=== PATIENT | female | born 1950 | race Caucasian/White ===

== ENCOUNTER 2021-02-22 14:00 | Outpatient (CLI) | payer MEDICARE ==
[2021-02-22 17:08] LABS: Anion Gap 18 mmol/L (10-20); BUN (Urea Nitrogen) 25 mg/dL (9.8-20.1); Calc. Creatinine Clearance 0 mL/min (70-130); Carbon Dioxide 24 mmol/L (23-31); Chloride 102 mmol/L (98-107); Glucose 237 mg/dL (83-110); Sodium 139 mmol/L (136-145)
[2021-02-22 17:20] LABS: PTT 25.7 sec (22.0-33.0); Prothrombin Time 10.7 sec (9.5-12.1)
[2021-02-22 17:28] LABS: Hemoglobin 12.8 g/dL (12.0-15.5); Mean Corpuscular HGB CONC 31.2 g/dL (32.0-36.0); Mean Corpuscular Hemoglobin 27.5 pg (27.0-33.0); Platelet Count 241 10x3/uL (150-450); RBC Distribution Width 13.8 % (11.5-14.5); Red Blood Cell (RBC) Count 4.66 10x6/uL (3.90-5.03); White Blood Cell (WBC) Count 8.6 10x3/uL (3.5-10.5)
== END 2021-02-22 14:01 | disposition home or self-care (01) ==
LOC: LABBT 14:00
PROVIDERS: ATTEND Neurological Surgery
DX: Z01.812 Encounter for preprocedural laboratory examination (principal); M48.00 Spinal stenosis, site unspecified; M43.10 Spondylolisthesis, site unspecified
CPT/HCPCS: 80048; 85027; 85610; 85730

== ENCOUNTER 2021-02-27 05:46 | Inpatient (IN) | payer MEDICARE, OTHER ==
[2021-02-27] MEDS ORDERED: EPINEPHrine 1 MG/ML AMP ONE (06:10)
[2021-02-27] MEDS ORDERED: Thrombin 5000 UNITS/5 ML VIAL ONE (06:10)
[2021-02-27] MEDS ORDERED: Bupivacaine PF 0.5% 30 ML VIAL ONE (06:10)
[2021-02-27] MEDS ORDERED: Fentanyl 100 MCG/2 ML VIAL ONE ×2 (06:17→16:10)
[2021-02-27] MEDS ORDERED: Rocuronium Bromide 10 MG/ML (10ML VIAL) ONE (07:04)
[2021-02-27] MEDS ORDERED: Glycopyrrolate 0.2 MG/ML 5 ML SYRINGE ONE (07:04)
[2021-02-27] MEDS ORDERED: Ondansetron PF 4 MG/2 ML Vial ONE (07:04)
[2021-02-27] MEDS ORDERED: Lidocaine 1% PF 5 ML VIAL ONE (07:04)
[2021-02-27] MEDS ORDERED: Dexamethasone 20 MG/5 ML VIAL ONE (07:04)
[2021-02-27] MEDS ORDERED: PROPOFOL 200 MG/20 ML VIAL ONE (07:04)
[2021-02-27] MEDS ORDERED: ePHEDrine Sulfate 50 MG/10 ML VIAL ONE (07:04)
[2021-02-27] MEDS ORDERED: PHENYLEPHRINE-NS 100 MCG/ML 10 ML SYRINGE ONE (07:04)
[2021-02-27] MEDS ORDERED: Metoclopramide HCl 10 MG/2 ML VIAL ONE (07:04)
[2021-02-27] MEDS ORDERED: Phenylephrine 10 MG/ML VIAL ONE (08:26)
[2021-02-27] MEDS ORDERED: Mag-Al 1200 mg/1200 mg/30 ML UDCUP PO PRN (13:44)
[2021-02-27] MEDS ORDERED: Promethazine HCl 25 MG/ML VIAL IM PRN ×2 (13:44→13:49)
[2021-02-27] MEDS ORDERED: Promethazine HCl 12.5 MG SUPP PR PRN (13:44)
[2021-02-27] MEDS ORDERED: diphenhydrAMINE 25 MG CAP PO PRN (13:44)
[2021-02-27] MEDS ORDERED: Promethazine 25 MG TAB PO PRN (13:44)
[2021-02-27] MEDS ORDERED: diphenhydrAMINE 50 MG/ML VIAL IVP PRN (13:44)
[2021-02-27] MEDS ORDERED: Ondansetron PF 4 MG/2 ML Vial IVP PRN (13:44)
[2021-02-27] MEDS ORDERED: tiZANidine HCl 4 MG TAB PO PRN (13:44)
[2021-02-27] MEDS ORDERED: Milk Of Magnesia 30 ML UDCUP PO PRN (13:44)
[2021-02-27] MEDS ORDERED: Ondansetron HCl/PF 4 MG/2 ML Vial IVP PRN (13:49)
[2021-02-27] MEDS ORDERED: Meperidine HCl/PF 25 MG/ML VIAL SLOW IVP PRN (13:49)
[2021-02-27] MEDS ORDERED: Promethazine HCl 25 MG/ML VIAL SLOW IVP PRN (13:49)
[2021-02-27] MEDS ORDERED: Dextrose 5% in Water 1,000 ML IV PRN (18:31)
[2021-02-27] MEDS ORDERED: Dextrose 50% Abboject 50 ML SYRINGE SLOW IVP PRN (18:31)
[2021-02-27] MEDS: Sodium Chloride 0.9% 1,000 ML IV SCH (20:58)
[2021-02-27] MEDS: Scopolamine 1.5 mg/72 hour Patch TD SCH (20:59)
[2021-02-27] MEDS: Rosuvastatin 10 MG TAB PO SCH (21:00)
[2021-02-27] MEDS: hydrALAZINE 25 MG TAB PO SCH (21:00)
[2021-02-27] MEDS: Carvedilol 6.25 MG TAB PO SCH (21:00)
[2021-02-27] MEDS: Pregabalin 50 MG CAP PO SCH (21:09)
[2021-02-27] MEDS: CEFAZOLIN 2 GM in Premix Bag 1 BAG IVPB SCH (21:15)
[2021-02-27] MEDS: traMADol HCl 50 MG TAB PO PRN (21:15)
[2021-02-27] MEDS: Lantus 1000 UNITS/10 ML VIAL SC SCH (21:18)
[2021-02-27] MEDS: Morphine 4 MG/ML VIAL SLOW IVP PRN (22:50)
[2021-02-28] MEDS: Morphine 4 MG/ML VIAL SLOW IVP PRN ×2 (00:07→09:04)
[2021-02-28] MEDS: CEFAZOLIN 2 GM in Premix Bag 1 BAG IVPB SCH ×2 (03:54→12:47)
[2021-02-28] MEDS: traMADol HCl 50 MG TAB PO PRN ×2 (04:03→10:19)
[2021-02-28] MEDS: Sodium Chloride 0.9% 1,000 ML IV SCH ×3 (05:23→16:46)
[2021-02-28] MEDS: HumaLOG 300 UNITS/3 ML VIAL SC PRN ×4 (05:28→21:32)
[2021-02-28 06:27] LABS: Hemoglobin 10.9 g/dL (12.0-16.0); Mean Corpuscular HGB CONC 32.6 g/dL (32.0-36.0); Mean Corpuscular Hemoglobin 28.8 pg (27.0-31.0); Mean Corpuscular Volume 88.5 fL (78.0-98.0); Mean Platelet Volume 6.2 fL (7.4-10.4); Platelet Count 214 thou/uL (130-400); RBC Distribution Width 13.1 % (11.5-14.5); Red Blood Cell (RBC) Count 3.79 mill/uL (4.20-5.40)
[2021-02-28 06:35] LABS: Hemoglobin A1c 7.9 % (4.0-6.0)
[2021-02-28] MEDS: Morphine 2 MG/ML VIAL SLOW IVP PRN (07:42)
[2021-02-28] MEDS: Carvedilol 6.25 MG TAB PO SCH ×2 (08:43→20:51)
[2021-02-28] MEDS: hydrALAZINE 25 MG TAB PO SCH ×2 (08:44→20:55)
[2021-02-28] MEDS: Lantus 1000 UNITS/10 ML VIAL SC SCH ×2 (11:42→20:53)
[2021-02-28] MEDS ORDERED: CEFAZOLIN 2 GM in Premix Bag 1 BAG IVPB SCH (12:00)
[2021-02-28] MEDS: Acetaminophen 325 MG TAB PO PRN (16:44)
[2021-02-28] MEDS: Clopidogrel Bisulfate 75 MG TAB PO SCH (20:52)
[2021-02-28] MEDS: Rosuvastatin 10 MG TAB PO SCH (20:52)
[2021-02-28] MEDS: Pregabalin 50 MG CAP PO SCH (20:52)
[2021-03-01] MEDS: Sodium Chloride 0.9% 1,000 ML IV SCH ×2 (05:00→14:20)
[2021-03-01] MEDS: hydrALAZINE 25 MG TAB PO SCH ×2 (08:40→20:27)
[2021-03-01] MEDS: Aspirin 81 mg Enteric Coated Tablet PO SCH (08:40)
[2021-03-01] MEDS: Lantus 1000 UNITS/10 ML VIAL SC SCH ×2 (08:41→20:26)
[2021-03-01] MEDS: Carvedilol 6.25 MG TAB PO SCH ×2 (08:41→20:28)
[2021-03-01 11:17] LABS: Bacteria/HPF None Seen HPF (None Seen); Bilirubin Negative (Negative); Blood, Urine Negative (Negative); Clarity Clear (Clear); Glucose, Urine (Dipstick) Normal (Negative); Ketone, Urine Trace mg/dL (Negative); Leukocyte Negative Leu/uL (Negative); Nitrite Negative (Negative); Protein, Urine (Dipstick) 50 mg/dL (Neg-Trace); RBC/HPF 0-3 HPF (0-3); Specific Gravity, Urine 1.025 (1.002-1.036); Squamous Epithelial 0-3 HPF (0-3); Urobilinogen Normal mg/dL (Less than 2); WBC/HPF 0-3 HPF (0-3); pH, Urine 5.5 (5.0-9.0)
[2021-03-01] MEDS: Acetaminophen 325 MG TAB PO PRN (11:20)
[2021-03-01] MEDS: traMADol HCl 50 MG TAB PO PRN (11:20)
[2021-03-01 11:24] LABS: Urine Culture Reflex No No
[2021-03-01 11:38] LABS: #Lymphocytes 1.4 thou/uL (1.20-3.40); #Monocytes 1.6 thou/uL (0.11-0.59); #Neutrophils 11.7 thou/uL (1.40-6.50); %Basophils 0.3 % (0.0-1.0); %Eosinophils 0.3 % (0.0-10.0); %Lymphocytes 9.2 % (21.0-51.0); %Monocytes 10.9 % (0.0-10.0); %Neutrophils 79.3 % (42.0-75.0); Hemoglobin 9.4 g/dL (12.0-16.0); Mean Corpuscular HGB CONC 32.9 g/dL (32.0-36.0); Mean Corpuscular Hemoglobin 29.2 pg (27.0-31.0); Mean Corpuscular Volume 88.5 fL (78.0-98.0); Mean Platelet Volume 5.9 fL (7.4-10.4); Platelet Count 167 thou/uL (130-400); RBC Distribution Width 13.2 % (11.5-14.5); Red Blood Cell (RBC) Count 3.23 mill/uL (4.20-5.40); White Blood Cell (WBC) Count 14.8 thou/uL (4.8-10.8)
[2021-03-01 11:57] LABS: Anion Gap 13 mmol/L (10-20); BUN (Urea Nitrogen) 37 mg/dL (9.8-20.1); Calc. Creatinine Clearance 48 mL/min (70-130); Calcium 8.2 mg/dL (7.8-10.44); Carbon Dioxide 17 mmol/L (23-31); Chloride 107 mmol/L (98-107); Glucose 234 mg/dL (83-110); Potassium 4.3 mmol/L (3.5-5.1); Sodium 133 mmol/L (136-145)
[2021-03-01] MEDS: HumaLOG 300 UNITS/3 ML VIAL SC PRN (17:05)
[2021-03-01] MEDS: Rosuvastatin 10 MG TAB PO SCH (20:27)
[2021-03-01] MEDS: Pregabalin 50 MG CAP PO SCH (20:28)
[2021-03-01] MEDS: Clopidogrel Bisulfate 75 MG TAB PO SCH (20:28)
[2021-03-02 06:01] LABS: #Eosinphils 0.1 thou/uL (0.0-0.7); #Lymphocytes 1.3 thou/uL (1.20-3.40); #Monocytes 1.6 thou/uL (0.11-0.59); #Neutrophils 11.9 thou/uL (1.40-6.50); %Basophils 0.1 % (0.0-1.0); %Eosinophils 0.8 % (0.0-10.0); %Lymphocytes 8.6 % (21.0-51.0); %Monocytes 10.8 % (0.0-10.0); %Neutrophils 79.8 % (42.0-75.0); Mean Corpuscular HGB CONC 32.7 g/dL (32.0-36.0); Mean Corpuscular Hemoglobin 29.2 pg (27.0-31.0); Mean Corpuscular Volume 89.2 fL (78.0-98.0); Mean Platelet Volume 6.3 fL (7.4-10.4); Platelet Count 174 thou/uL (130-400); RBC Distribution Width 13.1 % (11.5-14.5); Red Blood Cell (RBC) Count 3.07 mill/uL (4.20-5.40); White Blood Cell (WBC) Count 14.9 thou/uL (4.8-10.8)
[2021-03-02 06:24] LABS: Anion Gap 11 mmol/L (10-20); BUN (Urea Nitrogen) 38 mg/dL (9.8-20.1); Calc. Creatinine Clearance 53 mL/min (70-130); Calcium 8.1 mg/dL (7.8-10.44); Carbon Dioxide 19 mmol/L (23-31); Chloride 107 mmol/L (98-107); Glucose 203 mg/dL (83-110); Potassium 4.4 mmol/L (3.5-5.1); Sodium 133 mmol/L (136-145)
[2021-03-02] MEDS: hydrALAZINE 25 MG TAB PO SCH ×2 (09:05→21:15)
[2021-03-02] MEDS: Aspirin 81 mg Enteric Coated Tablet PO SCH (09:08)
[2021-03-02] MEDS: Carvedilol 6.25 MG TAB PO SCH ×2 (09:08→21:15)
[2021-03-02] MEDS: Sodium Chloride 0.9% 1,000 ML IV SCH ×2 (09:09→21:17)
[2021-03-02] MEDS: Lantus 1000 UNITS/10 ML VIAL SC SCH ×2 (09:09→21:16)
[2021-03-02] MEDS ORDERED: Mineral Oil ENEMA PR SCH (13:15)
[2021-03-02] MEDS: Bisacodyl 10 MG SUPP PR PRN (14:05)
[2021-03-02] MEDS: traMADol HCl 50 MG TAB PO PRN (14:05)
[2021-03-02] MEDS: Polyethylene Glycol 3350 17 GM Packet PO PRN (14:06)
[2021-03-02] MEDS: HumaLOG 300 UNITS/3 ML VIAL SC PRN (14:07)
[2021-03-02] MEDS: Scopolamine 1.5 mg/72 hour Patch TD SCH (18:54)
[2021-03-02] MEDS: Morphine 2 MG/ML VIAL SLOW IVP PRN (19:17)
[2021-03-02] MEDS: Rosuvastatin 10 MG TAB PO SCH (21:14)
[2021-03-02] MEDS: Clopidogrel Bisulfate 75 MG TAB PO SCH (21:15)
[2021-03-02] MEDS: Pregabalin 50 MG CAP PO SCH (21:16)
[2021-03-03 06:45] LABS: #Eosinphils 0.2 thou/uL (0.0-0.7); #Monocytes 1.7 thou/uL (0.11-0.59); #Neutrophils 10.8 thou/uL (1.40-6.50); %Basophils 0.2 % (0.0-1.0); %Eosinophils 1.4 % (0.0-10.0); %Lymphocytes 7.5 % (21.0-51.0); %Monocytes 12.6 % (0.0-10.0); %Neutrophils 78.3 % (42.0-75.0); Hemoglobin 9.1 g/dL (12.0-16.0); Mean Corpuscular HGB CONC 32.9 g/dL (32.0-36.0); Mean Corpuscular Hemoglobin 29.2 pg (27.0-31.0); Mean Corpuscular Volume 88.8 fL (78.0-98.0); Mean Platelet Volume 6.4 fL (7.4-10.4); Platelet Count 201 thou/uL (130-400); Red Blood Cell (RBC) Count 3.12 mill/uL (4.20-5.40); White Blood Cell (WBC) Count 13.7 thou/uL (4.8-10.8)
[2021-03-03 07:07] LABS: Anion Gap 11 mmol/L (10-20); BUN (Urea Nitrogen) 37 mg/dL (9.8-20.1); Calc. Creatinine Clearance 58 mL/min (70-130); Calcium 8.6 mg/dL (7.8-10.44); Carbon Dioxide 21 mmol/L (23-31); Chloride 107 mmol/L (98-107); Glucose 199 mg/dL (83-110); Potassium 4.9 mmol/L (3.5-5.1); Sodium 134 mmol/L (136-145)
[2021-03-03] MEDS: Aspirin 81 mg Enteric Coated Tablet PO SCH (08:57)
[2021-03-03] MEDS: hydrALAZINE 25 MG TAB PO SCH ×2 (08:58→21:48)
[2021-03-03] MEDS: Polyethylene Glycol 3350 17 GM Packet PO PRN (08:58)
[2021-03-03] MEDS: Carvedilol 6.25 MG TAB PO SCH ×2 (08:58→21:48)
[2021-03-03] MEDS: traMADol HCl 50 MG TAB PO PRN ×2 (08:59→17:03)
[2021-03-03] MEDS: Lantus 1000 UNITS/10 ML VIAL SC SCH ×2 (09:00→21:49)
[2021-03-03] MEDS: Sodium Chloride 0.9% 1,000 ML IV SCH (09:00)
[2021-03-03] MEDS: HumaLOG 300 UNITS/3 ML VIAL SC PRN ×2 (12:35→17:03)
[2021-03-03] MEDS: Rosuvastatin 10 MG TAB PO SCH (21:47)
[2021-03-03] MEDS: Clopidogrel Bisulfate 75 MG TAB PO SCH (21:47)
[2021-03-03] MEDS: Pregabalin 50 MG CAP PO SCH (21:49)
[2021-03-03] MEDS: Morphine 2 MG/ML VIAL SLOW IVP PRN (22:46)
[2021-03-04] MEDS: Bisacodyl 10 MG SUPP PR PRN (03:47)
[2021-03-04] MEDS: Sodium Chloride 0.9% 1,000 ML IV SCH ×2 (04:47→20:12)
[2021-03-04 06:10] LABS: #Eosinphils 0.3 thou/uL (0.0-0.7); #Monocytes 1.5 thou/uL (0.11-0.59); #Neutrophils 9.2 thou/uL (1.40-6.50); %Eosinophils 2.7 % (0.0-10.0); %Lymphocytes 8.6 % (21.0-51.0); %Monocytes 12.5 % (0.0-10.0); %Neutrophils 76.1 % (42.0-75.0); Hemoglobin 8.7 g/dL (12.0-16.0); Mean Corpuscular HGB CONC 32.5 g/dL (32.0-36.0); Mean Corpuscular Hemoglobin 29.1 pg (27.0-31.0); Mean Corpuscular Volume 89.7 fL (78.0-98.0); Platelet Count 218 thou/uL (130-400); RBC Distribution Width 13.3 % (11.5-14.5); Red Blood Cell (RBC) Count 2.99 mill/uL (4.20-5.40)
[2021-03-04 06:28] LABS: Anion Gap 15 mmol/L (10-20); BUN (Urea Nitrogen) 36 mg/dL (9.8-20.1); Calc. Creatinine Clearance 58 mL/min (70-130); Calcium 8.5 mg/dL (7.8-10.44); Carbon Dioxide 17 mmol/L (23-31); Chloride 108 mmol/L (98-107); Glucose 113 mg/dL (83-110); Potassium 4.8 mmol/L (3.5-5.1); Sodium 135 mmol/L (136-145)
[2021-03-04] MEDS: Aspirin 81 mg Enteric Coated Tablet PO SCH (10:28)
[2021-03-04] MEDS: hydrALAZINE 25 MG TAB PO SCH (10:28)
[2021-03-04] MEDS: Carvedilol 6.25 MG TAB PO SCH ×2 (10:29→23:00)
[2021-03-04] MEDS: Lantus 1000 UNITS/10 ML VIAL SC SCH ×2 (10:30→23:00)
[2021-03-04 22:48] LABS: Actual Bicarbonate (HCO3a) 20.1 mEq/L (22-28); Base Excess (BEa) -7.2 mEq/L (-2.0 to +3.0); CO2 Tension 48.4 mmHg (35.0-45.0); Calcium, Ionized (arterial) 1.23 mmol/L (1.12-1.30); Carboxyhemoglobin (COHb) 0.5 gm% (0.0-3.0); Hemoglobin (Hb) 10.4 g/dL (12.0-16.0); Potassium - ABG Lab 4.63 mmol/L (3.70-5.30)
[2021-03-04] MEDS: Rosuvastatin 10 MG TAB PO SCH (23:00)
[2021-03-04] MEDS: Pregabalin 50 MG CAP PO SCH (23:00)
[2021-03-04] MEDS: Clopidogrel Bisulfate 75 MG TAB PO SCH (23:00)
[2021-03-04] MEDS ORDERED: methylPREDNISolone Sod Succ/PF 125 MG/2 ML VIAL IVP SCH (23:00)
[2021-03-04 23:01] LABS: O2 Tension (PaO2), arterial 47.8 mmHg (> 70.0); pH, Arterial 7.24 (7.35-7.45)
[2021-03-04 23:02] LABS: Puncture Site RRA
[2021-03-04] MEDS ORDERED: Furosemide 40 MG/4 ML VIAL ONE (23:08)
[2021-03-04] MEDS ORDERED: hydrALAZINE 20 MG/ML VIAL SLOW IVP PRN (23:08)
[2021-03-04] MEDS ORDERED: Furosemide 40 MG/4 ML VIAL SLOW IVP SCH (23:15)
[2021-03-04 23:36] LABS: Calcium 8.4 mg/dL (7.8-10.44); Chloride 107 mmol/L (98-107); Glucose 242 mg/dL (83-110); Potassium 4.7 mmol/L (3.5-5.1); Sodium 137 mmol/L (136-145)
[2021-03-04 23:38] LABS: Carbon Dioxide 15 mmol/L (23-31)
[2021-03-04 23:40] LABS: Calc. Creatinine Clearance 66 mL/min (70-130)
[2021-03-04 23:41] LABS: BUN (Urea Nitrogen) 28 mg/dL (9.8-20.1)
[2021-03-04 23:48] LABS: Anion Gap 20 mmol/L (10-20)
[2021-03-05] MEDS: hydrALAZINE 25 MG TAB PO SCH ×3 (00:05→20:58)
[2021-03-05 00:13] LABS: Lactic Acid 1.3 mmol/L (0.5-2.2)
[2021-03-05] MEDS ORDERED: Nitroglycerin 0.4 MG TAB (25 Tab Bottle) SL PRN (00:31)
[2021-03-05 00:41] LABS: Band 7 % (5-11); Eosinophils 3 % (0-10); Hemoglobin 9.8 g/dL (12.0-16.0); Lymphocytes 16 % (21-51); MDiff Complete? YES; Mean Corpuscular HGB CONC 31.8 g/dL (32.0-36.0); Mean Corpuscular Hemoglobin 28.8 pg (27.0-31.0); Mean Corpuscular Volume 90.6 fL (78.0-98.0); Mean Platelet Volume 6.3 fL (7.4-10.4); Monocytes 7 % (0-10); Neutrophil 67 % (42-75); Nucleated RBC 1 % (0); Platelet Count 353 thou/uL (130-400); RBC Distribution Width 13.4 % (11.5-14.5); White Blood Cell (WBC) Count 20.1 thou/uL (4.8-10.8)
[2021-03-05] MEDS ORDERED: Pregabalin 50 MG CAP PO SCH (01:00)
[2021-03-05 01:09] LABS: Hemoglobin 9.2 g/dL (12.0-16.0); Platelet Count 267 thou/uL (130-400)
[2021-03-05] MEDS: Piperacillin/Tazobactam 3.375 GM in Sodium Chloride 0.9% 100 ML IVPB SCH ×4 (01:30→17:52)
[2021-03-05] MEDS: Carvedilol 6.25 MG TAB PO SCH ×3 (01:35→20:58)
[2021-03-05] MEDS: Clopidogrel Bisulfate 75 MG TAB PO SCH ×2 (01:38→20:58)
[2021-03-05] MEDS: Rosuvastatin 10 MG TAB PO SCH ×2 (01:38→20:57)
[2021-03-05] MEDS: Lantus 1000 UNITS/10 ML VIAL SC SCH ×3 (01:39→20:56)
[2021-03-05] MEDS: Heparin 25,000 units/D5W 500 ML IVPB SCH ×2 (01:42→18:31)
[2021-03-05] MEDS: Heparin 10,000 UNITS/ 10 ML VIAL SLOW IVP SCH ×3 (01:45→15:40)
[2021-03-05] MEDS: Pregabalin 50 MG CAP PO SCH ×2 (01:47→20:57)
[2021-03-05 01:56] LABS: Troponin I 5.415 ng/mL (< 0.028)
[2021-03-05 03:50] LABS: Anion Gap 16 mmol/L (10-20); BUN (Urea Nitrogen) 31 mg/dL (9.8-20.1); Calc. Creatinine Clearance 68 mL/min (70-130); Carbon Dioxide 17 mmol/L (23-31); Chloride 105 mmol/L (98-107); Glucose 242 mg/dL (83-110); Potassium 4.4 mmol/L (3.5-5.1); Sodium 134 mmol/L (136-145)
[2021-03-05 04:51] LABS: Band 17 % (5-11); Lymphocytes 2 % (21-51); MDiff Complete? YES; Mean Corpuscular HGB CONC 33.7 g/dL (32.0-36.0); Mean Corpuscular Hemoglobin 29.7 pg (27.0-31.0); Mean Corpuscular Volume 88.3 fL (78.0-98.0); Mean Platelet Volume 6.3 fL (7.4-10.4); Monocytes 1 % (0-10); Neutrophil 80 % (42-75); Platelet Count 251 thou/uL (130-400); RBC Distribution Width 13.4 % (11.5-14.5); Red Blood Cell (RBC) Count 3.03 mill/uL (4.20-5.40); White Blood Cell (WBC) Count 14.1 thou/uL (4.8-10.8)
[2021-03-05 05:47] LABS: Troponin I 6.924 ng/mL (< 0.028)
[2021-03-05] MEDS: Furosemide 40 MG/4 ML VIAL SLOW IVP SCH (08:32)
[2021-03-05] MEDS: Aspirin 81 mg Enteric Coated Tablet PO SCH (08:32)
[2021-03-05] MEDS ORDERED: Heparin 5,000 UNITS/ML VIAL SC SCH (09:00)
[2021-03-05] MEDS: Scopolamine 1.5 mg/72 hour Patch TD SCH (17:52)
[2021-03-05 19:34] LABS: Critical Call Chem Troponin I RESULT DECREASING; Troponin I 5.738 ng/mL (< 0.028)
[2021-03-05] MEDS: HumaLOG 300 UNITS/3 ML VIAL SC PRN (20:56)
[2021-03-06] MEDS: Piperacillin/Tazobactam 3.375 GM in Sodium Chloride 0.9% 100 ML IVPB SCH ×4 (01:34→18:01)
[2021-03-06] MEDS: HumaLOG 300 UNITS/3 ML VIAL SC PRN ×4 (06:23→20:56)
[2021-03-06] MEDS: Heparin 25,000 units/D5W 500 ML IVPB SCH (06:24)
[2021-03-06 06:43] LABS: Band 8 % (5-11); Hemoglobin 8.2 g/dL (12.0-16.0); Lymphocytes 8 % (21-51); MDiff Complete? YES; Mean Corpuscular HGB CONC 31.5 g/dL (32.0-36.0); Mean Corpuscular Hemoglobin 28.1 pg (27.0-31.0); Mean Corpuscular Volume 89.1 fL (78.0-98.0); Mean Platelet Volume 6.4 fL (7.4-10.4); Monocytes 6 % (0-10); Neutrophil 78 % (42-75); Platelet Count 298 thou/uL (130-400); RBC Distribution Width 13.3 % (11.5-14.5); Red Blood Cell (RBC) Count 2.92 mill/uL (4.20-5.40); White Blood Cell (WBC) Count 14.6 thou/uL (4.8-10.8)
[2021-03-06 06:45] LABS: Anion Gap 14 mmol/L (10-20); BUN (Urea Nitrogen) 38 mg/dL (9.8-20.1); Calc. Creatinine Clearance 58 mL/min (70-130); Calcium 8.7 mg/dL (7.8-10.44); Carbon Dioxide 21 mmol/L (23-31); Chloride 104 mmol/L (98-107); Glucose 325 mg/dL (83-110); Sodium 135 mmol/L (136-145)
[2021-03-06] MEDS: Aspirin 81 mg Enteric Coated Tablet PO SCH (08:41)
[2021-03-06] MEDS: Carvedilol 6.25 MG TAB PO SCH ×2 (08:42→20:54)
[2021-03-06] MEDS: hydrALAZINE 25 MG TAB PO SCH ×2 (08:42→20:52)
[2021-03-06] MEDS: Furosemide 40 MG/4 ML VIAL SLOW IVP SCH (08:43)
[2021-03-06] MEDS: Lantus 1000 UNITS/10 ML VIAL SC SCH ×2 (08:44→20:55)
[2021-03-06] MEDS ORDERED: Ergocalciferol 1.25 MG(50,000 UNITS) CAP PO SCH (09:00)
[2021-03-06] MEDS ORDERED: Lantus 1000 UNITS/10 ML VIAL SC SCH (12:30)
[2021-03-06] MEDS ORDERED: Piperacillin/Tazobactam 3.375 GM in Sodium Chloride 0.9% 100 ML IVPB SCH (20:00)
[2021-03-06] MEDS: Pregabalin 50 MG CAP PO SCH (20:55)
[2021-03-06] MEDS: Rosuvastatin 10 MG TAB PO SCH (20:55)
[2021-03-06] MEDS: Clopidogrel Bisulfate 75 MG TAB PO SCH (20:55)
[2021-03-07 01:04] LABS: Hemoglobin 7.9 g/dL (12.0-16.0); Platelet Count 315 thou/uL (130-400)
[2021-03-07] MEDS: Piperacillin/Tazobactam 3.375 GM in Sodium Chloride 0.9% 100 ML IVPB SCH ×2 (01:17→06:05)
[2021-03-07] MEDS: Heparin 25,000 units/D5W 500 ML IVPB SCH (01:17)
[2021-03-07] MEDS: hydrALAZINE 25 MG TAB PO SCH ×2 (09:19→21:23)
[2021-03-07] MEDS: Aspirin 81 mg Enteric Coated Tablet PO SCH (09:19)
[2021-03-07] MEDS: Furosemide 40 MG/4 ML VIAL SLOW IVP SCH (09:20)
[2021-03-07] MEDS: Lantus 1000 UNITS/10 ML VIAL SC SCH ×2 (09:21→21:24)
[2021-03-07] MEDS: Carvedilol 6.25 MG TAB PO SCH ×2 (09:21→21:23)
[2021-03-07] MEDS ORDERED: Piperacillin/Tazobactam 3.375 GM in Sodium Chloride 0.9% 100 ML IVPB SCH (12:00)
[2021-03-07 15:04] LABS: INR-International Normal Ratio 1.2; PTT 61.5 sec (22.9-36.1); Prothrombin Time 14.7 sec (12.0-14.7)
[2021-03-07] MEDS: Rosuvastatin 10 MG TAB PO SCH (21:23)
[2021-03-07] MEDS: Clopidogrel Bisulfate 75 MG TAB PO SCH (21:24)
[2021-03-07] MEDS: Pregabalin 50 MG CAP PO SCH (21:24)
[2021-03-08 04:19] LABS: Anion Gap 15 mmol/L (10-20); BUN (Urea Nitrogen) 33 mg/dL (9.8-20.1); Calc. Creatinine Clearance 67 mL/min (70-130); Calcium 9.2 mg/dL (7.8-10.44); Carbon Dioxide 25 mmol/L (23-31); Chloride 102 mmol/L (98-107); Glucose 91 mg/dL (83-110); Potassium 3.2 mmol/L (3.5-5.1); Sodium 139 mmol/L (136-145)
[2021-03-08 05:10] LABS: #Basophils 0.1 thou/uL (0.0-0.2); #Eosinphils 0.2 thou/uL (0.0-0.7); #Lymphocytes 1.3 thou/uL (1.20-3.40); #Monocytes 0.9 thou/uL (0.11-0.59); #Neutrophils 8.7 thou/uL (1.40-6.50); %Basophils 0.8 % (0.0-1.0); %Eosinophils 1.3 % (0.0-10.0); %Lymphocytes 11.8 % (21.0-51.0); %Monocytes 8.1 % (0.0-10.0); Mean Corpuscular HGB CONC 31.2 g/dL (32.0-36.0); Mean Corpuscular Hemoglobin 27.4 pg (27.0-31.0); Mean Corpuscular Volume 87.9 fL (78.0-98.0); Mean Platelet Volume 6.4 fL (7.4-10.4); Platelet Count 367 thou/uL (130-400); RBC Distribution Width 13.8 % (11.5-14.5); Red Blood Cell (RBC) Count 4.01 mill/uL (4.20-5.40); White Blood Cell (WBC) Count 11.2 thou/uL (4.8-10.8)
[2021-03-08] MEDS: Furosemide 40 MG/4 ML VIAL SLOW IVP SCH (09:00)
[2021-03-08] MEDS: Aspirin 81 mg Enteric Coated Tablet PO SCH (09:00)
[2021-03-08] MEDS: hydrALAZINE 25 MG TAB PO SCH ×2 (09:07→21:14)
[2021-03-08] MEDS: Carvedilol 6.25 MG TAB PO SCH ×2 (09:08→21:12)
[2021-03-08] MEDS: Lantus 1000 UNITS/10 ML VIAL SC SCH ×2 (09:16→22:08)
[2021-03-08 14:17] VITALS: BMI 40.0
[2021-03-08] MEDS ORDERED: Potassium Chloride 20 MEQ TAB PO SCH (15:45)
[2021-03-08] MEDS: Scopolamine 1.5 mg/72 hour Patch TD SCH (17:00)
[2021-03-08] MEDS: HumaLOG 300 UNITS/3 ML VIAL SC PRN (17:01)
[2021-03-08] MEDS: Rosuvastatin 10 MG TAB PO SCH (21:13)
[2021-03-08] MEDS: Clopidogrel Bisulfate 75 MG TAB PO SCH (21:13)
[2021-03-08] MEDS: Pregabalin 50 MG CAP PO SCH (21:14)
[2021-03-09 01:48] LABS: #Eosinphils 0.2 thou/uL (0.0-0.7); #Lymphocytes 2.1 thou/uL (1.20-3.40); #Neutrophils 8.3 thou/uL (1.40-6.50); %Basophils 0.3 % (0.0-1.0); %Eosinophils 1.8 % (0.0-10.0); %Lymphocytes 18.1 % (21.0-51.0); %Monocytes 8.5 % (0.0-10.0); %Neutrophils 71.3 % (42.0-75.0); Hemoglobin 11.7 g/dL (12.0-16.0); Mean Corpuscular HGB CONC 31.2 g/dL (32.0-36.0); Mean Corpuscular Hemoglobin 27.7 pg (27.0-31.0); Mean Corpuscular Volume 88.7 fL (78.0-98.0); Mean Platelet Volume 6.2 fL (7.4-10.4); Platelet Count 381 thou/uL (130-400); RBC Distribution Width 13.9 % (11.5-14.5); Red Blood Cell (RBC) Count 4.22 mill/uL (4.20-5.40); White Blood Cell (WBC) Count 11.7 thou/uL (4.8-10.8)
[2021-03-09 02:02] LABS: Anion Gap 15 mmol/L (10-20); BUN (Urea Nitrogen) 26 mg/dL (9.8-20.1); Calc. Creatinine Clearance 63 mL/min (70-130); Calcium 9.1 mg/dL (7.8-10.44); Carbon Dioxide 27 mmol/L (23-31); Chloride 100 mmol/L (98-107); Glucose 100 mg/dL (83-110); Potassium 3.5 mmol/L (3.5-5.1); Sodium 138 mmol/L (136-145)
[2021-03-09] MEDS: Carvedilol 6.25 MG TAB PO SCH ×2 (08:13→21:01)
[2021-03-09] MEDS: Furosemide 40 MG TAB PO SCH (08:13)
[2021-03-09] MEDS: hydrALAZINE 25 MG TAB PO SCH ×2 (08:13→21:02)
[2021-03-09] MEDS: Aspirin 81 mg Enteric Coated Tablet PO SCH (08:13)
[2021-03-09] MEDS: Lantus 1000 UNITS/10 ML VIAL SC SCH ×2 (08:14→23:14)
[2021-03-09 11:10] LABS: SARS-CoV-2 PCR by NAA Not Detected (NotDetected)
[2021-03-09] MEDS: Polyethylene Glycol 3350 17 GM Packet PO PRN (20:56)
[2021-03-09] MEDS: Rosuvastatin 10 MG TAB PO SCH (20:57)
[2021-03-09] MEDS: Pregabalin 50 MG CAP PO SCH (20:57)
[2021-03-09] MEDS: Clopidogrel Bisulfate 75 MG TAB PO SCH (20:57)
[2021-03-10 03:41] LABS: #Eosinphils 0.2 thou/uL (0.0-0.7); #Lymphocytes 1.7 thou/uL (1.20-3.40); #Monocytes 0.9 thou/uL (0.11-0.59); %Basophils 0.3 % (0.0-1.0); %Eosinophils 1.6 % (0.0-10.0); %Lymphocytes 15.4 % (21.0-51.0); %Monocytes 8.5 % (0.0-10.0); %Neutrophils 74.3 % (42.0-75.0); Hemoglobin 11.6 g/dL (12.0-16.0); Mean Corpuscular HGB CONC 32.3 g/dL (32.0-36.0); Mean Corpuscular Hemoglobin 28.6 pg (27.0-31.0); Mean Corpuscular Volume 88.5 fL (78.0-98.0); Mean Platelet Volume 6.1 fL (7.4-10.4); Platelet Count 324 thou/uL (130-400); RBC Distribution Width 13.9 % (11.5-14.5); Red Blood Cell (RBC) Count 4.06 mill/uL (4.20-5.40); White Blood Cell (WBC) Count 10.8 thou/uL (4.8-10.8)
[2021-03-10 03:49] LABS: Anion Gap 12 mmol/L (10-20); BUN (Urea Nitrogen) 26 mg/dL (9.8-20.1); Calc. Creatinine Clearance 57 mL/min (70-130); Calcium 8.8 mg/dL (7.8-10.44); Carbon Dioxide 30 mmol/L (23-31); Chloride 100 mmol/L (98-107); Glucose 205 mg/dL (83-110); Potassium 4.1 mmol/L (3.5-5.1); Sodium 138 mmol/L (136-145)
[2021-03-10] MEDS: Aspirin 81 mg Enteric Coated Tablet PO SCH (09:24)
[2021-03-10] MEDS: Carvedilol 6.25 MG TAB PO SCH ×2 (09:24→20:22)
[2021-03-10] MEDS: Lantus 1000 UNITS/10 ML VIAL SC SCH ×2 (09:25→20:22)
[2021-03-10] MEDS: Furosemide 40 MG TAB PO SCH (09:25)
[2021-03-10] MEDS: hydrALAZINE 25 MG TAB PO SCH ×2 (09:29→20:23)
[2021-03-10] MEDS: HumaLOG 300 UNITS/3 ML VIAL SC PRN ×2 (12:57→17:04)
[2021-03-10] MEDS: Clopidogrel Bisulfate 75 MG TAB PO SCH (20:20)
[2021-03-10] MEDS: Rosuvastatin 10 MG TAB PO SCH (20:20)
[2021-03-10] MEDS: Pregabalin 50 MG CAP PO SCH (20:21)
[2021-03-11 01:05] LABS: Hemoglobin 11.7 g/dL (12.0-16.0); Platelet Count 307 thou/uL (130-400)
[2021-03-11 03:52] LABS: #Eosinphils 0.2 thou/uL (0.0-0.7); #Lymphocytes 1.6 thou/uL (1.20-3.40); #Neutrophils 7.7 thou/uL (1.40-6.50); %Basophils 0.2 % (0.0-1.0); %Eosinophils 1.8 % (0.0-10.0); %Lymphocytes 15.1 % (21.0-51.0); %Monocytes 9.1 % (0.0-10.0); %Neutrophils 73.8 % (42.0-75.0); Hemoglobin 11.6 g/dL (12.0-16.0); Mean Corpuscular HGB CONC 32.7 g/dL (32.0-36.0); Mean Corpuscular Hemoglobin 28.7 pg (27.0-31.0); Mean Corpuscular Volume 87.6 fL (78.0-98.0); Mean Platelet Volume 6.1 fL (7.4-10.4); Platelet Count 300 thou/uL (130-400); RBC Distribution Width 13.5 % (11.5-14.5); Red Blood Cell (RBC) Count 4.04 mill/uL (4.20-5.40); White Blood Cell (WBC) Count 10.4 thou/uL (4.8-10.8)
[2021-03-11 04:09] LABS: Anion Gap 21 mmol/L (10-20); BUN (Urea Nitrogen) 25 mg/dL (9.8-20.1); Calc. Creatinine Clearance 60 mL/min (70-130); Calcium 8.9 mg/dL (7.8-10.44); Carbon Dioxide 17 mmol/L (23-31); Chloride 100 mmol/L (98-107); Glucose 222 mg/dL (83-110); Potassium 3.7 mmol/L (3.5-5.1); Sodium 134 mmol/L (136-145)
[2021-03-11] MEDS: HumaLOG 300 UNITS/3 ML VIAL SC PRN ×3 (06:33→17:24)
[2021-03-11] MEDS: hydrALAZINE 25 MG TAB PO SCH ×2 (08:53→20:33)
[2021-03-11] MEDS: Carvedilol 6.25 MG TAB PO SCH ×2 (08:53→20:32)
[2021-03-11] MEDS: Furosemide 40 MG TAB PO SCH (08:53)
[2021-03-11] MEDS: Aspirin 81 mg Enteric Coated Tablet PO SCH (08:53)
[2021-03-11] MEDS: Lantus 1000 UNITS/10 ML VIAL SC SCH ×2 (08:54→20:34)
[2021-03-11] MEDS: Scopolamine 1.5 mg/72 hour Patch TD SCH (17:23)
[2021-03-11] MEDS: Clopidogrel Bisulfate 75 MG TAB PO SCH (20:32)
[2021-03-11] MEDS: Rosuvastatin 10 MG TAB PO SCH (20:32)
[2021-03-11] MEDS: Pregabalin 50 MG CAP PO SCH (20:33)
[2021-03-12 04:27] LABS: #Eosinphils 0.2 thou/uL (0.0-0.7); #Lymphocytes 1.6 thou/uL (1.20-3.40); #Neutrophils 7.6 thou/uL (1.40-6.50); %Basophils 0.3 % (0.0-1.0); %Eosinophils 1.8 % (0.0-10.0); %Lymphocytes 15.6 % (21.0-51.0); %Monocytes 9.5 % (0.0-10.0); %Neutrophils 72.9 % (42.0-75.0); Hemoglobin 11.5 g/dL (12.0-16.0); Mean Corpuscular HGB CONC 32.2 g/dL (32.0-36.0); Mean Corpuscular Hemoglobin 28.3 pg (27.0-31.0); Mean Corpuscular Volume 87.8 fL (78.0-98.0); Mean Platelet Volume 6.1 fL (7.4-10.4); Platelet Count 307 thou/uL (130-400); RBC Distribution Width 13.6 % (11.5-14.5); Red Blood Cell (RBC) Count 4.07 mill/uL (4.20-5.40); White Blood Cell (WBC) Count 10.4 thou/uL (4.8-10.8)
[2021-03-12 04:46] LABS: Anion Gap 16 mmol/L (10-20); BUN (Urea Nitrogen) 27 mg/dL (9.8-20.1); Calc. Creatinine Clearance 52 mL/min (70-130); Carbon Dioxide 25 mmol/L (23-31); Chloride 99 mmol/L (98-107); Glucose 200 mg/dL (83-110); Potassium 3.7 mmol/L (3.5-5.1); Sodium 136 mmol/L (136-145)
[2021-03-12] MEDS: HumaLOG 300 UNITS/3 ML VIAL SC PRN ×2 (06:50→11:21)
[2021-03-12] MEDS: Carvedilol 6.25 MG TAB PO SCH (08:21)
[2021-03-12] MEDS: hydrALAZINE 25 MG TAB PO SCH (08:21)
[2021-03-12] MEDS: Aspirin 81 mg Enteric Coated Tablet PO SCH (08:21)
[2021-03-12] MEDS: Furosemide 40 MG TAB PO SCH (08:21)
[2021-03-12] MEDS: Lantus 1000 UNITS/10 ML VIAL SC SCH (08:25)
[2021-03-12 10:55] VITALS: BP 136/51
[2021-03-12 11:19] VITALS: TEMP 97.4
== END 2021-03-12 12:15 | disposition home or self-care (01) | DRG 453 ==
LOC: SDC 05:46 → T4-A 13:44 → IMCU/EMU 03-04 23:40
PROVIDERS: ADMIT Neurological Surgery; ATTEND Neurological Surgery
PROC: 01N80ZZ Release Thoracic Nerve, Open Approach (ICD-10-PCS; principal; 2021-02-27)
PROC: 0SG00AJ Fusion of Lumbar Vertebral Joint with Interbody Fusion Device, Posterior Approach, Anterior Column, Open Approach (ICD-10-PCS; 2021-02-27)
PROC: 0SG0071 Fusion of Lumbar Vertebral Joint with Autologous Tissue Substitute, Posterior Approach, Posterior Column, Open Approach (ICD-10-PCS; 2021-02-27)
PROC: 01NB0ZZ Release Lumbar Nerve, Open Approach (ICD-10-PCS; 2021-02-27)
PROC: 0ST20ZZ Resection of Lumbar Vertebral Disc, Open Approach (ICD-10-PCS; 2021-02-27)
PROC: BR19ZZZ Fluoroscopy of Lumbar Spine (ICD-10-PCS; 2021-02-27)
PROC: BR17ZZZ Fluoroscopy of Thoracic Spine (ICD-10-PCS; 2021-02-27)
PROC: XW023U6 Introduction of COVID-19 Vaccine into Muscle, Percutaneous Approach, New Technology Group 6 (ICD-10-PCS; 2021-02-27)
PROC: 5A09357 Assistance with Respiratory Ventilation, Less than 24 Consecutive Hours, Continuous Positive Airway Pressure (ICD-10-PCS; 2021-02-27)
PROC: 3E0234Z Introduction of Serum, Toxoid and Vaccine into Muscle, Percutaneous Approach (ICD-10-PCS; 2021-02-27)
PROC: 30233N1 Transfusion of Nonautologous Red Blood Cells into Peripheral Vein, Percutaneous Approach (ICD-10-PCS; 2021-02-27)
DX: M48.062 Spinal stenosis, lumbar region with neurogenic claudication (principal); I21.4 Non-ST elevation (NSTEMI) myocardial infarction; G95.89 Other specified diseases of spinal cord; N17.9 Acute kidney failure, unspecified; J81.1 Chronic pulmonary edema; I13.0 Hypertensive heart and chronic kidney disease with heart failure and stage 1 through stage 4 chronic kidney disease, or unspecified chronic kidney disease; M48.04 Spinal stenosis, thoracic region; M43.16 Spondylolisthesis, lumbar region; I25.10 Atherosclerotic heart disease of native coronary artery without angina pectoris; M19.90 Unspecified osteoarthritis, unspecified site; G89.29 Other chronic pain; E78.5 Hyperlipidemia, unspecified; R33.9 Retention of urine, unspecified; R50.82 Postprocedural fever; E11.22 Type 2 diabetes mellitus with diabetic chronic kidney disease; N18.9 Chronic kidney disease, unspecified; K59.00 Constipation, unspecified; R41.0 Disorientation, unspecified; R00.0 Tachycardia, unspecified; I08.1 Rheumatic disorders of both mitral and tricuspid valves; I50.9 Heart failure, unspecified; N32.89 Other specified disorders of bladder; E87.70 Fluid overload, unspecified; Z96.651 Presence of right artificial knee joint; Z20.822 Contact with and (suspected) exposure to COVID-19; E66.9 Obesity, unspecified; I25.2 Old myocardial infarction; Z95.5 Presence of coronary angioplasty implant and graft; Z98.890 Other specified postprocedural states; Z79.4 Long term (current) use of insulin; Z79.82 Long term (current) use of aspirin; Z79.899 Other long term (current) drug therapy; Z79.02 Long term (current) use of antithrombotics/antiplatelets; Z88.5 Allergy status to narcotic agent; Z82.49 Family history of ischemic heart disease and other diseases of the circulatory system; Z88.8 Allergy status to other drugs, medicaments and biological substances; Z90.49 Acquired absence of other specified parts of digestive tract; Z98.49 Cataract extraction status, unspecified eye; Z90.710 Acquired absence of both cervix and uterus; Z23 Encounter for immunization; Z68.38 Body mass index [BMI] 38.0-38.9, adult
CPT/HCPCS: 36415; 36416; 36430; 36600; 71045; 76000; 80048; 81001; 82805; 83036; 83605; 83880; 84484; 85014; 85018; 85025; 85027; 85049; 85610; 85730; 86850; 86900; 86901; 87040; 87086; 93005; 93010; 93306; 93970; 94640; 94660; C1713; C1768; J0171; J0360; J0690; J1100; J1644; J1815; J1940; J2270; J2370; J2405; J2543; J2704; J2765; J2930; J3010; J3370; J3490; J7620; P9016; S0020; U0003; U0005

== ENCOUNTER 2022-06-27 11:27 | Outpatient (CLI) | payer MEDICARE, OTHER ==
[2022-06-27 14:06] LABS: Hemoglobin 12.3 g/dL (12.0-15.5); Mean Corpuscular HGB CONC 31.7 g/dL (32.0-36.0); Mean Corpuscular Hemoglobin 28.2 pg (27.0-33.0); Mean Platelet Volume 8.9 fl (7.4-10.4); Platelet Count 208 10x3/uL (150-450); Red Blood Cell (RBC) Count 4.36 10x6/uL (3.90-5.03); White Blood Cell (WBC) Count 6.2 10x3/uL (3.5-10.5)
[2022-06-27 14:21] LABS: PTT 27.1 sec (22.0-33.0); Prothrombin Time 10.6 sec (9.5-12.1)
[2022-06-27 14:28] LABS: Anion Gap 14 mmol/L (10-20); BUN (Urea Nitrogen) 32 mg/dL (9.8-20.1); Calc. Creatinine Clearance 0 mL/min (70-130); Calcium 9.7 mg/dL (7.8-10.44); Carbon Dioxide 24 mmol/L (23-31); Chloride 107 mmol/L (98-107); Estimated GFR 39; Glucose 225 mg/dL (83-110); Potassium 5.3 mmol/L (3.5-5.1); Sodium 140 mmol/L (136-145)
== END 2022-06-27 11:28 | disposition home or self-care (01) ==
LOC: LABBT 11:27
PROVIDERS: ATTEND Neurological Surgery
DX: Z01.818 Encounter for other preprocedural examination (principal); M47.12 Other spondylosis with myelopathy, cervical region
CPT/HCPCS: 80048; 85027; 85610; 85730; 93005; 93010

== ENCOUNTER 2022-07-02 05:39 | Observation (INO) | payer MEDICARE, OTHER ==
[2022-06-28 12:11] VITALS: BMI 42.9
[2022-07-02] MEDS ORDERED: Thrombin 5000 UNITS/5 ML VIAL ONE (06:09)
[2022-07-02] MEDS ORDERED: Neomycin-Polymyxin 1 ML AMP ONE (06:09)
[2022-07-02] MEDS ORDERED: Midazolam HCl 2 mg/2 ml Vial ONE (06:21)
[2022-07-02] MEDS ORDERED: fentaNYL Citrate/PF 100 MCG/2 ML SYRINGE ONE (06:21)
[2022-07-02] MEDS ORDERED: CEFAZOLIN 2 GM VIAL ONE ×2 (06:52→14:40)
[2022-07-02] MEDS ORDERED: Sodium Chloride 0.9% 100 ML ONE ×2 (06:52→14:41)
[2022-07-02] MEDS ORDERED: PROPOFOL 200 MG/20 ML VIAL ONE (07:30)
[2022-07-02] MEDS ORDERED: ePHEDrine 50 MG/ML VIAL ONE (07:30)
[2022-07-02] MEDS ORDERED: Ondansetron PF 4 MG/2 ML Vial ONE (07:30)
[2022-07-02] MEDS ORDERED: Rocuronium Bromide 10 MG/ML (10ML VIAL) ONE (07:30)
[2022-07-02] MEDS ORDERED: Vecuronium 10 MG VIAL ONE (07:30)
[2022-07-02] MEDS ORDERED: PHENYLEPHRINE-NS 100 MCG/ML 10 ML SYRINGE ONE (07:30)
[2022-07-02] MEDS ORDERED: Phenylephrine 10 MG/ML VIAL ONE (07:48)
[2022-07-02] MEDS ORDERED: SUGAMMADEX SODIUM 200 MG/2 ML VIAL ONE (09:53)
[2022-07-02] MEDS ORDERED: Prochlorperazine 10 MG/2 ML VIAL IM PRN (10:32)
[2022-07-02] MEDS ORDERED: Bisacodyl 10 MG SUPP PR PRN (10:32)
[2022-07-02] MEDS ORDERED: HYDROcodone/Acetaminophen 10/325 mg Tablet PO PRN (10:32)
[2022-07-02] MEDS ORDERED: Milk Of Magnesia 30 ML UDCUP PO PRN (10:32)
[2022-07-02] MEDS ORDERED: Morphine 2 MG/ML VIAL SLOW IVP PRN (10:32)
[2022-07-02] MEDS ORDERED: traMADol HCl 50 MG TAB PO PRN (10:32)
[2022-07-02] MEDS ORDERED: Acetaminophen 325 MG TAB PO PRN (10:32)
[2022-07-02] MEDS ORDERED: Ondansetron PF 4 MG/2 ML Vial IVP PRN (10:32)
[2022-07-02] MEDS ORDERED: diphenhydrAMINE 50 MG/ML VIAL IVP PRN (10:32)
[2022-07-02] MEDS ORDERED: Mag-Al 1200 mg/1200 mg/30 ML UDCUP PO PRN (10:32)
[2022-07-02] MEDS ORDERED: Chloraseptic Spray 180 ml Bottle PO PRN (10:35)
[2022-07-02] MEDS: Sodium Chloride 0.9% 1,000 ML IV SCH ×2 (11:02→23:33)
[2022-07-02] MEDS ORDERED: HYDROcodone/Acetaminophen 7.5/325 mg Tablet ONE (14:28)
[2022-07-02] MEDS: HYDROcodone/Acetaminophen 7.5/325 mg Tablet PO PRN (14:30)
[2022-07-02] MEDS: CEFAZOLIN 2 GM in Sodium Chloride 0.9% 100 ML IVPB SCH ×2 (14:45→23:32)
[2022-07-02] MEDS ORDERED: Polyethylene Glycol 3350 17 GM Packet PO PRN (15:52)
[2022-07-02] MEDS ORDERED: Dextrose 5% in Water 1,000 ML IV PRN (15:52)
[2022-07-02] MEDS ORDERED: Dextrose 50% Abboject 50 ML SYRINGE SLOW IVP PRN (15:52)
[2022-07-02] MEDS ORDERED: Insulin Regular 300 UNITS/3 ML VIAL SC PRN (15:52)
[2022-07-02] MEDS ORDERED: hydrALAZINE 20 MG/ML VIAL SLOW IVP PRN (15:53)
[2022-07-02] MEDS: Insulin Regular 300 UNITS/3 ML VIAL SC PRN (16:27)
[2022-07-02] MEDS: Carvedilol 6.25 MG TAB PO SCH (17:05)
[2022-07-02] MEDS: hydrALAZINE 25 MG TAB PO SCH (20:48)
[2022-07-02] MEDS: Senokot S 8.6-50 MG TAB PO SCH (20:50)
[2022-07-02] MEDS ORDERED: Insulin Glargine 30 UNITS/0.3 ML VIAL SC SCH ×2 (21:00)
[2022-07-02] MEDS ORDERED: Pregabalin 75 MG CAP PO SCH (21:00)
[2022-07-03 05:07] LABS: SARS-CoV-2 NAA Rapid Test Not Detected (NotDetected)
[2022-07-03 06:03] LABS: Anion Gap 13 mmol/L (10-20); BUN (Urea Nitrogen) 21 mg/dL (9.8-20.1); Calc. Creatinine Clearance 67 mL/min (70-130); Calcium 8.9 mg/dL (7.8-10.44); Carbon Dioxide 22 mmol/L (23-31); Chloride 107 mmol/L (98-107); Estimated GFR 42; Glucose 155 mg/dL (83-110); Potassium 4.2 mmol/L (3.5-5.1); Sodium 138 mmol/L (136-145)
[2022-07-03] MEDS: Carvedilol 6.25 MG TAB PO SCH (08:55)
[2022-07-03] MEDS: hydrALAZINE 25 MG TAB PO SCH (08:57)
[2022-07-03] MEDS: Senokot S 8.6-50 MG TAB PO SCH (08:58)
[2022-07-03] MEDS ORDERED: Aspirin 81 mg Enteric Coated Tablet PO SCH (09:00)
[2022-07-03 09:04] VITALS: TEMP 98.3
[2022-07-03 11:18] VITALS: BP 138/60
[2022-07-03] MEDS: HYDROcodone/Acetaminophen 7.5/325 mg Tablet PO PRN (11:45)
[2022-07-03] MEDS: Insulin Regular 300 UNITS/3 ML VIAL SC PRN (11:46)
[2022-07-03] MEDS: Sodium Chloride 0.9% 1,000 ML IV SCH (14:36)
[2022-07-03] MEDS ORDERED: Insulin Glargine 30 UNITS/0.3 ML VIAL SC SCH (21:00)
== END 2022-07-03 14:56 | disposition home or self-care (01) ==
LOC: SDC 05:39 → MSONC 15:47
PROVIDERS: ADMIT Neurological Surgery; ATTEND Neurological Surgery
PROC: 0RG20A0 Fusion of 2 or more Cervical Vertebral Joints with Interbody Fusion Device, Anterior Approach, Anterior Column, Open Approach (ICD-10-PCS; principal; 2022-07-02)
DX: M50.021 Cervical disc disorder at C4-C5 level with myelopathy (principal); M47.12 Other spondylosis with myelopathy, cervical region; M19.90 Unspecified osteoarthritis, unspecified site; E78.00 Pure hypercholesterolemia, unspecified; I13.10 Hypertensive heart and chronic kidney disease without heart failure, with stage 1 through stage 4 chronic kidney disease, or unspecified chronic kidney disease; E11.22 Type 2 diabetes mellitus with diabetic chronic kidney disease; N18.30 Chronic kidney disease, stage 3 unspecified; M81.0 Age-related osteoporosis without current pathological fracture; I25.10 Atherosclerotic heart disease of native coronary artery without angina pectoris; G89.4 Chronic pain syndrome; E66.01 Morbid (severe) obesity due to excess calories; Z68.41 Body mass index [BMI] 40.0-44.9, adult; Z79.02 Long term (current) use of antithrombotics/antiplatelets; Z79.4 Long term (current) use of insulin; Z79.82 Long term (current) use of aspirin; Z79.620 Long term (current) use of immunosuppressive biologic; Z79.899 Other long term (current) drug therapy; Z88.5 Allergy status to narcotic agent; Z91.02 Food additives allergy status; Z98.1 Arthrodesis status; Z95.5 Presence of coronary angioplasty implant and graft; Z20.822 Contact with and (suspected) exposure to COVID-19
CPT/HCPCS: 20930; 20936; 22551; 22552; 22853 ×2; 76000; 80048; 82962 ×2; 97530 ×2; 97535; C1713 ×2; J2270; U0002; 36415; 36416; J0690; J1815; J2250; J2370; J2405; J2704; J3490; J7050